=== PATIENT | male | born 1970 | race Caucasian/White ===

== ENCOUNTER 2021-07-31 00:29 | Emergency (ER) | payer MEDICAID ==
[2021-07-31 01:31] LABS: BASOPHILS # (AUTO) 0.1 10^3/uL (0.0-0.1); BASOPHILS % (AUTO) 1.3 %; EOSINOPHILS # (AUTO) 0.2 10^3/uL (0.0-0.7); EOSINOPHILS % (AUTO) 4.1 %; HCT - HEMATOCRIT 40.7 % (42.0-52.0); HGB - HEMOGLOBIN 15.2 g/dL (14.0-18.0); LYMPHOCYTES # (AUTO) 1.6 10^3/uL (1.5-3.5); LYMPHOCYTES % (AUTO) 27.7 %; MEAN CORPUSCULAR HGB CONC 37.3 g/dL (32.0-36.0); MEAN CORPUSCULAR VOLUME 91.1 fL (80.0-94.0); MONOCYTES # (AUTO) 0.8 10^3/uL (0.0-1.0); MONOCYTES % (AUTO) 13.6 %; NEUTROPHILS % (AUTO) 52.9 %; PLT - PLATELET COUNT 105 10^3/uL (130-450); RED BLOOD COUNT 4.47 10^6/uL (4.70-6.10); RED CELL DISTRIBUTION WIDTH 11.4 % (12.0-15.0); WHITE BLOOD COUNT 5.6 x10^3/uL (4.8-10.8)
[2021-07-31 01:43] LABS: ALBUMIN 3.7 g/dL (3.2-5.5); CALCIUM 8.6 mg/dL (8.5-10.3); CREATININE 0.9 mg/dL (0.6-1.2); TOTAL PROTEIN 7.3 g/dL (6.7-8.2)
[2021-07-31] MEDS ORDERED: SODIUM CHLORIDE 0.9% 1,000 ML IV STA (01:46)
[2021-07-31] MEDS ORDERED: TETANUS/DIPHTHERIA/PERTUSSIS 0.5 ML SYRINGE IM ONE (02:06)
--- NOTE | 2021-07-31 03:01 | ED Physician Documentation ---
PD HPI LOWER EXT INJURY - Stated complaint Stated Complaint: BLISTER ON FOOT - Chief complaint Chief Complaint: Ext Problem - History obtained from History obtained from: Patient - Additional information Additional information: Patient presenting for evaluation of blisters noted to bilateral lower extremities for the last 1 day. He recently bought new boots and for the last 2 days has been working outside more than his normal. This evening his family members noted large blisters to his legs. Patient denies any discomfort.He also states that he has not been to a doctor in at least 10 years. His blood pressure was noted to be elevated at triage. He denies chest pain, headache, difficulty breathing, difficulty with urination. He has noted increased swelling to his legs. He does express concern for diabetes as his mother had diabetes. Review of Systems Constitutional: denies: Fever, Chills Nose: denies: Congestion Cardiac: denies: Chest pain / pressure, Palpitations Respiratory: denies: Dyspnea, Cough GI: denies: Abdominal Pain, Vomiting, Diarrhea, Bloody / black stool : denies: Dysuria, Frequency, Unable to Void Skin: reports: Rash (Psoriasis) Neurologic: denies: Syncope, Headache PD PAST MEDICAL HISTORY - Present Medications Home Medications: Ambulatory Orders Medication Instructions Recorded Confirmed No Known Home Medications 07/31/21 07/31/21 - Allergies Allergies/Adverse Reactions: Allergies Allergy/AdvReac Type Severity Reaction Status Date / Time No Known Drug Allergies Allergy Verified 07/31/21 00:39 PD ED PE NORMAL - General General: Alert and oriented X 3, No acute distress, Well developed/nourished - HEENT HEENT: Atraumatic, PERRL - Neck Neck: Supple, no meningeal sign - Cardiac Cardiac: RRR, No murmur, Strong equal pulses - Respiratory Respiratory: No respiratory distress, Clear bilaterally - Abdomen Abdomen: Normal bowel sounds, Soft, Non tender, Non distended - Derm Derm: Other (Psoriatic rash to right upper extremity) - Extremities Extremities: Other (Mild pitting edema bilaterally; Left ankle with 2 large blisters with Serous colored fluid, rightLateral lower leg has intact blister also with serous appearing fluid, Open blister to right lower extremity with no surrounding erythema or warmth) Results - Vitals Vitals: Vital Signs - 24 hr 07/31/21 07/31/21 00:31 03:21 Temperature 36.1 C L Heart Rate 99 92 Respiratory 12 18 Rate Blood Pressure 204/112 H 135/83 H O2 Saturation 96 97 Oxygen O2 Source Room air - EKG (time done) 0113 Rate: Rate (enter#) (101) Rhythm: Sinus tachycardia Intervals: Other (QTC 474) Ischemia: No: ST elevation c/w ischemia, ST depression Compare to prior EKG: Old EKG unavailable - Labs Labs: Laboratory Tests 07/31/21 07/31/21 07/31/21 01:26 01:26 01:26 WBC 5.6 RBC 4.47 L Hgb 15.2 Hct 40.7 L MCV 91.1 MCH 34.0 H MCHC 37.3 H RDW 11.4 L Plt Count 105 L MPV 12.0 H Neut # (Auto) 3.0 Lymph # (Auto) 1.6 Pickett # (Auto) 0.8 Eos # (Auto) 0.2 Baso # (Auto) 0.1 Absolute Nucleated RBC 0.00 Nucleated RBC % 0.0 Sodium 130 L Potassium 4.0 Chloride 95 L Carbon Dioxide 21 Anion Gap 14.0 H BUN 19 Creatinine 0.9 Estimated GFR (MDRD) 89 Glucose 508 H* Calcium 8.6 Total Bilirubin 1.0 AST 47 H ALT 81 H Alkaline Phosphatase 151 H B-Natriuretic Peptide 47 Total Protein 7.3 Albumin 3.7 Globulin 3.6 Albumin/Globulin Ratio 1.0 PD MEDICAL DECISION MAKING - ED course ED course: Patient presenting for evaluation of blisters noted to bilateral lower extremities. On exam patient has few large blisters with Underlying serous fluid. No signs of infection. Patient is additionally very hypertensive and has not seen a physician in over 10 years.Given presence of lower extremity edema and significant Juve elevated blood pressure readings, labs and EKG were obtained.Urgently creatinine is within normal limits. However glucose is elevated. I do suspect patient has untreated hypertension and diabetes. Patient was given IV fluids with appropriate reduction in his blood sugar. He is essentially asymptomatic. He does not currently have a primary care doctor so I gave him the information for the unassigned provider this week which is Pedro Luis Alcaraz. I stressed the importance of follow-up and patient Indicates that he will. I also advised the patient to elevate his legs, avoid tight fitting shoes or clothes and to keep any wounds clean and dry. Departure - Departure Disposition: Home, Self Care Clinical Impression: Uncontrolled hypertension, Hyperglycemia, unspecified, Peripheral edema, Blister (nonthermal), left lower leg, initial encounter, Blister (nonthermal), right lower leg, initial encounter Condition: Stable Instructions: Hypertension Dc, ED Blister, ED Hyperglycemia New Susp Diabetes Follow-Up: Pedro Luis Alcaraz MD [Provider Admit Priv/Credential] - Comments: Your blood pressure and blood sugar are both elevated today. I am concerned that you have untreated hypertension (High blood pressure) And diabetes. I would like you to have follow-up with a primary care doctor. Dr. Pedro Luis Alcaraz is on-call this week for patients who do not yet have a primary care doctor. His phone number is [phone]. It is very important to call him today to get a close follow-up appointment As you likely need to be started on medications. Untreated high blood pressure and diabetes can cause serious medical issues including strokes, heart attacks, kidney failure, . The blisters on your legs were also evaluated today. At this time there is no signs of infection and I do not believe they need to be emergently opened up.They will likely open on their own. Please keep the wounds clean and dry and avoid any tight fitting shoes or clothing which may rub on your skin causing further blister or introduce infection. Discharge Date/Time: 07/31/21 03:35
[2021-07-31 03:22] VITALS: BP 135/83
== END 2021-07-31 03:35 | disposition home or self-care (01) ==
LOC: ED 00:29
DX: R03.0 Elevated blood-pressure reading, without diagnosis of hypertension (principal); R60.0 Localized edema; R73.9 Hyperglycemia, unspecified; S80.821A Blister (nonthermal), right lower leg, initial encounter; X58.XXXA Exposure to other specified factors, initial encounter; Y93.H2 Activity, gardening and landscaping
CPT/HCPCS: 36415; 80053; 83880; 85025; 90471; 93005; 96360; 99284

== ENCOUNTER 2021-08-17 17:20 | Outpatient (CLI) | payer MEDICAID ==
[2021-08-17 21:48] LABS: ALBUMIN 3.5 g/dL (3.2-5.5); ALBUMIN/GLOBULIN RATIO 0.7 (1.0-2.2); ALKALINE PHOSPHATASE 82 IU/L (42-121); ALT ALANINE AMINOTRANSFERASE 57 IU/L (10-60); AST ASPARTATE AMINOTRANSFERASE 36 IU/L (10-42); BILIRUBIN,TOTAL 1.3 mg/dL (0.2-1.0); BUN - BLOOD UREA NITROGEN 34 mg/dL (6-20); CALCIUM 9.2 mg/dL (8.5-10.3); CARBON DIOXIDE - CO2 28 mmol/L (21-32); CHLORIDE 90 mmol/L (101-111); CHOL/HDL RATIO 3.7 (<5.0); CHOLESTEROL 162 mg/dL; CREATININE 1.5 mg/dL (0.6-1.2); GFR - MDRD 50 (>89); GLUCOSE 315 mg/dL (70-100); HDL CHOLESTEROL 44 mg/dL; LDL CHOLESTEROL,CALCULATED 93 mg/dL; LDL/HDL RATIO 2.1 (<3.6); POTASSIUM 4.7 mmol/L (3.5-5.0); SODIUM 130 mmol/L (135-145); TOTAL PROTEIN 8.3 g/dL (6.7-8.2); TRIGLYCERIDES 125 mg/dL; VLDL CHOLESTEROL 25 mg/dL
[2021-08-18 09:19] LABS: ESTIMATED AVERAGE GLUCOSE 246 mg/dL (70-100); HEMOGLOBIN A1c% 10.2 % (4.27-6.07)
== END 2021-08-17 17:21 | disposition home or self-care (01) ==
LOC: LAB.N 17:20
PROVIDERS: ATTEND Physician Assistant
DX: R73.9 Hyperglycemia, unspecified (principal); F10.10 Alcohol abuse, uncomplicated; R03.0 Elevated blood-pressure reading, without diagnosis of hypertension; E66.3 Overweight
CPT/HCPCS: 36415; 80053; 80061; 82043; 82570; 83036; 83721

== ENCOUNTER 2021-08-18 08:45 | Outpatient (CLI) | payer MEDICAID ==
[2021-08-18 12:19] LABS: BILIRUBIN,URINE NEGATIVE (NEGATIVE); GLUCOSE, URINE (UA) >=1000 mg/dL (NEGATIVE); KETONES,URINE (UA) NEGATIVE (NEGATIVE); LEUKOCYTE ESTERASE, URINE NEGATIVE (NEGATIVE); NITRITE,URINE NEGATIVE (NEGATIVE); OCCULT BLOOD,URINE SMALL (NEGATIVE); PH,URINE 5.5 PH (5.0-7.5); PROTEIN,URINE NEGATIVE (NEGATIVE); UROBILINOGEN,URINE 0.2 (NORMAL) E.U./dL (NORMAL)
[2021-08-18 12:25] LABS: CLARITY,URINE TURBID (CLEAR)
[2021-08-18 12:42] LABS: RBC,URINE None Seen /HPF (0-5); WBC,URINE 0-3 /HPF (0-3)
[2021-08-18 12:43] LABS: AMORPHOUS SEDIMENT,UR Marked /LPF; BACTERIA,URINE Few /HPF (None Seen); CASTS, URINE 0-2 Hyaline Casts /LPF; CRYSTALS,URINE 26-50 Uric Acid /LPF; SQUAMOUS EPITHELIAL CELL,UR RARE Squamous (<= Few)
== END 2021-08-18 23:59 | disposition home or self-care (01) ==
LOC: LAB.N 08:45
PROVIDERS: ATTEND Physician Assistant
DX: R31.21 Asymptomatic microscopic hematuria (principal)
CPT/HCPCS: 81001; 81003; 87086

== ENCOUNTER 2022-09-21 09:16 | Outpatient (CLI) | payer MEDICAID ==
[2022-09-21 09:46] LABS: BASOPHILS # (AUTO) 0.1 10^3/uL (0.0-0.1); BASOPHILS % (AUTO) 1.2 %; EOSINOPHILS # (AUTO) 0.4 10^3/uL (0.0-0.7); EOSINOPHILS % (AUTO) 7.5 %; HGB - HEMOGLOBIN 13.7 g/dL (14.0-18.0); LYMPHOCYTES # (AUTO) 1.4 10^3/uL (1.5-3.5); LYMPHOCYTES % (AUTO) 28.6 %; MEAN CORPUSCULAR HGB CONC 35.1 g/dL (32.0-36.0); MEAN CORPUSCULAR VOLUME 91.1 fL (80.0-94.0); MEAN PLATELET VOLUME 11.4 fL (7.4-11.4); MONOCYTES # (AUTO) 0.7 10^3/uL (0.0-1.0); MONOCYTES % (AUTO) 14.1 %; NEUTROPHILS # (AUTO) 2.4 10^3/uL (1.5-6.6); NEUTROPHILS % (AUTO) 48.2 %; PLT - PLATELET COUNT 129 10^3/uL (130-450); RED BLOOD COUNT 4.28 10^6/uL (4.70-6.10); RED CELL DISTRIBUTION WIDTH 11.9 % (12.0-15.0)
[2022-09-21 10:05] LABS: ALBUMIN 3.9 g/dL (3.2-5.5); ALBUMIN/GLOBULIN RATIO 0.9 (1.0-2.2); ALKALINE PHOSPHATASE 77 IU/L (42-121); ALT ALANINE AMINOTRANSFERASE 53 IU/L (10-60); AST ASPARTATE AMINOTRANSFERASE 46 IU/L (10-42); BILIRUBIN,TOTAL 0.8 mg/dL (0.2-1.0); BUN - BLOOD UREA NITROGEN 32 mg/dL (6-20); CALCIUM 9.1 mg/dL (8.5-10.3); CARBON DIOXIDE - CO2 26 mmol/L (21-32); CHLORIDE 101 mmol/L (101-111); CHOL/HDL RATIO 3.7 (<5.0); CHOLESTEROL 201 mg/dL; GFR - MDRD 79 (>89); GLUCOSE 118 mg/dL (70-100); HDL CHOLESTEROL 54 mg/dL; LDL CHOLESTEROL,CALCULATED 125 mg/dL; LDL/HDL RATIO 2.3 (<3.6); SODIUM 134 mmol/L (135-145); TOTAL PROTEIN 8.4 g/dL (6.7-8.2); TRIGLYCERIDES 108 mg/dL; VLDL CHOLESTEROL 22 mg/dL
[2022-09-21 10:10] LABS: CREATININE,URINE 45.7 mg/dL; MICROALBUM/CREATININE RATIO,UR 866.5 ug/mg (<30.0); MICROALBUMIN,URINE 39.6 mg/dL (0-300.0)
[2022-09-21 10:29] LABS: ESTIMATED AVERAGE GLUCOSE 105 mg/dL (70-100); HEMOGLOBIN A1c% 5.3 % (4.27-6.07)
== END 2022-09-21 09:17 | disposition home or self-care (01) ==
LOC: LAB 09:16
PROVIDERS: ATTEND Physician Assistant
DX: I10 Essential (primary) hypertension (principal); E11.628 Type 2 diabetes mellitus with other skin complications
CPT/HCPCS: 36415; 80053; 80061; 82043; 82570; 83036; 83721; 84443; 85025